=== PATIENT | male | born 1975 | race Caucasian/White ===

== ENCOUNTER → 2024-01-09 17:53 | Outpatient (BNVA) | payer OTHER, SELFPAY | PROVIDERS: Visit Provider Nurse Practitioner | DX: R05.9 Cough, unspecified (principal) | CPT/HCPCS: 87400 ==

== ENCOUNTER 2024-04-15 17:23 | Emergency (ER) | payer OTHER, SELFPAY ==
[2024-04-15 17:38] VITALS: BP 162/101; PULSE 115; RESP 18; TEMP 37.2; O2SAT 96; BMI 43.0
--- NOTE | 2024-04-15 18:02 | ED_ITS ---
Documented by User: RANDOLPH Thomas 04/15/24 20:23 HPI - Nausea/Vomiting/Diarrhea 2 General: Chief complaint: Nausea/Vomiting/Diarrhea Stated complaint: Nausea--ABD pain Time Seen by Provider: 04/15/24 17:46 Source: patient Mode of arrival: ambulatory Limitations: no limitations History of Present Illness: Patient is a 48-year-old male who presents to the emergency department complaining of nausea onset 1 day. Patient was started on valacyclovir yesterday after being diagnosed with shingles, and states his symptoms began soon after his first dose. He notes he has only had 3 doses of the valacyclovir so far, but along with his nausea he has had diarrhea and some abdominal cramping. He states he has not vomited, however. He has not run any fevers, no chills, chest pain, or breathing difficulties noted. The abdominal pain he reports is diffuse. He does note that he has drank hardly any water today and has not had an appetite, and states he feels dehydrated. No other symptoms to note at this time. MD elicited complaint: nausea, diarrhea and abdominal pain Onset (ago): day(s) Associated nausea: Yes Associated abdominal pain: Yes Location of pain: Diffuse Quality: cramping Context: other (Recent antiviral) Associated symtoms: Reports nausea; Denies chest pain, diaphoresis, dizziness, dysuria, headache(s) or palpitations Review of Systems 2 General: Reports: 10 or more systems reviewed and unremarkable except in HPI and below Const: Denies: fever(s), chills, change in appetite, change in weight or diaphoresis ENMT: Denies: throat pain or hoarseness Card: Denies: chest pain, palpitations or lightheadedness Resp: Denies: dyspnea, productive cough or wheezing GI: Reports: abdominal pain, nausea, diarrhea and GI cramping; Denies: vomiting : Denies: flank pain, difficulty urinating, dysuria, urinary frequency or urinary urgency Musc: Denies: neck pain or back pain Skin/Breast: Denies: rash or new lesions Neuro: Denies: headache(s) or dizziness Physical Exam 2 Const: COMMON NORMALS: no acute distress, patient oriented x3, no limitations, healthy appearing, alert and well nourished GENERAL APPEARANCE: cooperative and comfortable NUTRITIONAL APPEARANCE: obese ORIENTATION/CONSCIOUSNESS: Y es awake HENMT: COMMON NORMALS: normocephalic, atraumatic, hearing grossly normal bilaterally, external ears normal, Normal external nose present, Normal nasal mucous membranes and turbinates present and moist oral mucous membranes HEAD & SCALP: normocephalic and atraumatic NOSE: Normal external nose present and Normal nasal mucous membranes and turbinates present EXTERNAL EAR: Yes external ears normal Eye: COMMON NORMALS: Equal, round and reactive pupils present, EOMs intact bilaterally, conjunctivae normal and normal visual shultz by confrontation C ONJUNCTIVA: Yes conjunctivae normal PUPIL: Yes Equal, round and reactive pupils present Neck/C-Spine: COMMON NORMALS: full ROM, supple, no meningeal signs and no JVD Resp: COMMON NORMALS: normal respiratory effort, No retractions, No use of accessory muscles and clear to auscultation bilaterally AUSCULTATION: clear to auscultation bilaterally, no crackles, no rales, no rhonchi and no wheezes Cardio: COMMON NORMALS: no JVD, regular rate, regular rhythm, S1 normal heart sound present, S2 normal heart sound present, No gallops present (Cardio), No clicks present (Cardio), No murmurs present (Cardio), No rub (Cardio) and Peripheral pulses 2+ throughout RATE: regular rate RHYTHM: regular rhythm HEART SOUNDS: S1 normal heart sound present and S2 normal heart sound present PERIPHERAL PULSES: Peripheral pulses 2+ throughout GI: COMMON NORMALS: Normal to inspection, nondistended, normoactive bowel sounds present, Soft to palpation, non-tender, No hepatosplenomegaly present and no masses INSPECTION: Yes central obesity AUSCULTATION: Yes normoactive bowel sounds PALPATION: Yes Soft to palpation, No Guarding due to palpation present (GI), No Rigid due to palpation and Yes No hepatosplenomegaly present RECTAL EXAM: Yes deferred : COMMON NORMALS: Yes no CVA tenderness BLADDER/KIDNEY EXAM: Yes no CVA tenderness Back/Pelvis: COMMON NORMALS: no CVA tenderness Extremity: COMMON NORMALS: normal to inspection and full ROM Neuro: COMMON NORMALS: patient oriented x3, moves all extremities, no focal motor deficits and no sensory deficits noted SENSORIUM/ORIENTATION: Yes alert MENINGEAL SIGNS: Yes no meningeal signs Psych: COMMON NORMALS: mental status grossly normal, cooperative and speech normal SPEECH: Yes normal speech Skin: COMMON NORMALS: no rashes or lesions noted GENERAL SKIN EXAM: no rashes or lesions noted Course 2 Vital Signs: Vital signs: Vital Signs Temperature 98.9 F 04/15/24 17:38 Pulse Rate 96 04/15/24 20:29 Respiratory Rate 18 04/15/24 20:29 Blood Pressure 155/89 04/15/24 20:29 Pulse Oximetry 100 04/15/24 20:29 Oxygen Delivery Me thod Room Air 04/15/24 20:29 MDM - Nausea/Vomiting/Diarrhea Medical Decision Making Patient presents for 1 day of nausea after starting valacyclovir for shingles. His lab work was unremarkable and vitals have remained stable throughout his ED course. Will start him on some fluids and nausea medication, and upon recheck states he feels better. Due to the importance of the antiviral for shingles, will treat his symptoms of nausea with Zofran to take at home. However strict return precautions were given in the instance that he is unable to keep down food or drink or severe worsening of symptoms. Otherwise, he will follow-up with his primary care provider and continue to take his valacyclovir. Patient discharged home. Lab Data 04/15/24 18:10 04/15/24 18:10 Laboratory Results WBC 13.98 10^3/uL (3.29-11.43) H 04/15/24 18:10 RBC 5.32 10^6/uL (3.85-5.65) 04/15/24 18:10 Hgb 14.40 g/dL (11.27-16.99) 04/15/24 18:10 Hct 44.3 % (37-53) 04/15/24 18:10 MCV 83.3 fl (82-101) 04/15/24 18:10 MCH 27.1 pg (27-33) 04/15/24 18:10 MCHC 32.5 g/dL (30-55) 04/15/24 18:10 RDW 13.0 % (12.1-15.1) 04/15/24 18:10 Plt Count 394 10^3/cmm (157-399) 04/15/24 18:10 MPV 10.4 fL (7.4-10.4) 04/15/24 18:10 Neut % (Auto) 91.2 % 04/15/24 18:10 Lymph % (Auto) 4.0 % 04/15/24 18:10 Ritchie % (Auto) 3.1 % 04/15/24 18:10 Eos % (Auto) 1.0 % 04/15/24 18:10 Baso % (Auto) 0.3 % 04/15/24 18:10 Neut # (Auto) 12.74 10^3/uL (1.8-7.7) H 04/15/24 18:10 Lymph # (Auto) 0.6 10^3/uL (0.8-4.8) L 04/15/24 18:10 Ritchie # (Auto) 0.4 10^3/uL (0.2-0.9) 04/15/24 18:10 Eos # (Auto) 0.1 10^3/uL (0.0-0.8) 04/15/24 18:10 Baso # (Auto) 0.0 10^3/uL (0.0-0.1) 04/15/24 18:10 Nucleated RBC % (auto) 0 % 04/15/24 18:10 Nucleated RBCs # 0.0 /100WBC 04/15/24 18:10 Sodium 133 mmol/L (136-145) L 04/15/24 18:10 Potassium 4.1 mmol/L (3.5-5.1) 04/15/24 18:10 Chloride 98 mmol/L (98-107) 04/15/24 18:10 Carbon Dioxide 26 mmol/L (22-29) 04/15/24 18:10 Anion Gap 13.1 (5-19) 04/15/24 18:10 BUN 12 mg/dL (6-20) 04/15/24 18:10 Creatinine 0.7 mg/dL (0.7-1.2) 04/15/24 18:10 GFR Calculation 121.4 mL/min (90-130) 04/15/24 18:10 Glucose 159 mg/dL (65-115) H 04/15/24 18:10 Calculated Osmolality 279 mOsm/kg (285-295) L 04/15/24 18:10 Lactic Acid 1.5 mmol/L (0.5-2.2) 04/15/24 18:10 Calcium 8.0 mg/dL (8.5-10.5) L 04/15/24 18:10 Total Bilirubin 0.4 mg/dL (0.15-1.2) 04/15/24 18:10 AST 19 U/L (0-40) 04/15/24 18:10 ALT 17 U/L (0-41) 04/15/24 18:10 Alkaline Phosphatase 94 U/L (40-130) 04/15/24 18:10 C-Reactive Protein 8.9 mg/L (0.0-4.9) H 04/15/24 18:10 Total Protein 7.3 g/dL (6.6-8.7) 04/15/24 18:10 Albumin 3.9 g/dL (3.5-5.2) 04/15/24 18:10 Globulin 3.4 g/dL (1.3-4.6) 04/15/24 18:10 Lipase 20 U/L (13-60) 04/15/24 18:10 Urine Color Yellow (Yellow) 04/15/24 19:37 Urine Appearance Clear (CLEAR) 04/15/24 19:37 Urine pH 6.5 (5-7) 04/15/24 19:37 Ur Specific [place] 1.020 (1.005-1.030) 04/15/24 19:37 Urine Protein Trace (Negative) 04/15/24 19:37 Urine Glucose (UA) Norm (Normal) 04/15/24 19:37 Urine Ketones Negative (Negative) 04/15/24 19:37 Urine Blood 2+ (Negative) H 04/15/24 19:37 Urine Nitrate Positive (Negative) H 04/15/24 19:37 Urine Bilirubin Neg (Negative) 04/15/24 19:37 Urine Urobilinogen Norm mg/dL (Negative) 04/15/24 19:37 Ur Leukocyte Esterase Trace (Negative) H 04/15/24 19:37 Urine RBC 0-4 /hpf (0-2) H 04/15/24 19:37 Urine WBC Rare /hpf (0-5) 04/15/24 19:37 Ur Squamous Epith Cells None /hpf (0-5) 04/15/24 19:37 Amorphous Sediment Not Reportable 04/15/24 19:37 Urine Bacteria None /hpf (NONE) 04/15/24 19:37 Urine Mucus Trace /hpf 04/15/24 19:37 No radiology studies performed this visit Discharge Plan Discharge Patient Disposition: Home Clinical Impression: Gastroenteritis Condition: Stable Prescriptions: New ondansetron HCl 4 mg tablet 4 mg PO Q8H Qty: 30 0RF No Action cetirizine 10 mg tablet 10 mg PO DAILY Qty: 30 0RF fluticasone propionate [Flonase Allergy Relief] 50 mcg/actuation spray,suspension 2 spray intranasal DAILY Qty: 16 0RF Rx Instructions: administer into each nostril promethazine-DM 6.25-15 mg/5 mL syrup 5 ml PO Q4H PRN (Reason: cough) Qty: 118 0RF Rx Instructions: Do not exceed more than 30ml/24hour period (6 doses) Discharge Orders: Discharge ED (Routine); Ordered 04/15/24 Ordered By: Jose Reynoso Discharge Diet: As Directed Discharge Activity: Increase activity as tolerated Patient Instructions: Gastroenteritis (ED) Activity Restrictions/Additional Instructions: Continue taking your acyclovir. Add nausea medication for relief. Plenty of fluids as directed. Follow-up with primary care and return if your condition worsens or does not improve. Coding Level of Care Code ED Carriage Feeder for Chg Fwd Documented by User: Zeb Butler DO 04/21/24 15:42 HPI - Nausea/Vomiting/Diarrhea 2 General: Chief complaint: Nausea/Vomiting/Diarrhea Stated complaint: Nausea--ABD pain Time Seen by Provider: 04/15/24 17:46 Course 2 Vital Signs: Vital signs: Vital Signs Temperature 98.9 F 04/15/24 17:38 Pulse Rate 96 04/15/24 20:29 Respiratory Rate 18 04/15/24 20:29 Blood Pressure 155/89 04/15/24 20:29 Pulse Oximetry 100 04/15/24 20:29 Oxygen Delivery Me thod Room Air 04/15/24 20:29 MDM - Nausea/Vomiting/Diarrhea Medical Decision Making Patient presents for 1 day of nausea after starting valacyclovir for shingles. His lab work was unremarkable and vitals have remained stable throughout his ED course. Will start him on some fluids and nausea medication, and upon recheck states he feels better. Due to the importance of the antiviral for shingles, will treat his symptoms of nausea with Zofran to take at home. However strict return precautions were given in the instance that he is unable to keep down food or drink or severe worsening of symptoms. Otherwise, he will follow-up with his primary care provider and continue to take his valacyclovir. Patient discharged home. Chart reviewed Medical Records I reviewed the patient's medical records. Lab Data I reviewed the patient's lab results. 04/15/24 18:10 04/15/24 18:10 Laboratory Results WBC 13.98 10^3/uL (3.29-11.43) H 04/15/24 18:10 RBC 5.32 10^6/uL (3.85-5.65) 04/15/24 18:10 Hgb 14.40 g/dL (11.27-16.99) 04/15/24 18:10 Hct 44.3 % (37-53) 04/15/24 18:10 MCV 83.3 fl (82-101) 04/15/24 18:10 MCH 27.1 pg (27-33) 04/15/24 18:10 MCHC 32.5 g/dL (30-55) 04/15/24 18:10 RDW 13.0 % (12.1-15.1) 04/15/24 18:10 Plt Count 394 10^3/cmm (157-399) 04/15/24 18:10 MPV 10.4 fL (7.4-10.4) 04/15/24 18:10 Neut % (Auto) 91.2 % 04/15/24 18:10 Lymph % (Auto) 4.0 % 04/15/24 18:10 Ritchie % (Auto) 3.1 % 04/15/24 18:10 Eos % (Auto) 1.0 % 04/15/24 18:10 Baso % (Auto) 0.3 % 04/15/24 18:10 Neut # (Auto) 12.74 10^3/uL (1.8-7.7) H 04/15/24 18:10 Lymph # (Auto) 0.6 10^3/uL (0.8-4.8) L 04/15/24 18:10 Ritchie # (Auto) 0.4 10^3/uL (0.2-0.9) 04/15/24 18:10 Eos # (Auto) 0.1 10^3/uL (0.0-0.8) 04/15/24 18:10 Baso # (Auto) 0.0 10^3/uL (0.0-0.1) 04/15/24 18:10 Nucleated RBC % (auto) 0 % 04/15/24 18:10 Nucleated RBCs # 0.0 /100WBC 04/15/24 18:10 Sodium 133 mmol/L (136-145) L 04/15/24 18:10 Potassium 4.1 mmol/L (3.5-5.1) 04/15/24 18:10 Chloride 98 mmol/L (98-107) 04/15/24 18:10 Carbon Dioxide 26 mmol/L (22-29) 04/15/24 18:10 Anion Gap 13.1 (5-19) 04/15/24 18:10 BUN 12 mg/dL (6-20) 04/15/24 18:10 Creatinine 0.7 mg/dL (0.7-1.2) 04/15/24 18:10 GFR Calculation 121.4 mL/min (90-130) 04/15/24 18:10 Glucose 159 mg/dL (65-115) H 04/15/24 18:10 Calculated Osmolality 279 mOsm/kg (285-295) L 04/15/24 18:10 Lactic Acid 1.5 mmol/L (0.5-2.2) 04/15/24 18:10 Calcium 8.0 mg/dL (8.5-10.5) L 04/15/24 18:10 Total Bilirubin 0.4 mg/dL (0.15-1.2) 04/15/24 18:10 AST 19 U/L (0-40) 04/15/24 18:10 ALT 17 U/L (0-41) 04/15/24 18:10 Alkaline Phosphatase 94 U/L (40-130) 04/15/24 18:10 C-Reactive Protein 8.9 mg/L (0.0-4.9) H 04/15/24 18:10 Total Protein 7.3 g/dL (6.6-8.7) 04/15/24 18:10 Albumin 3.9 g/dL (3.5-5.2) 04/15/24 18:10 Globulin 3.4 g/dL (1.3-4.6) 04/15/24 18:10 Lipase 20 U/L (13-60) 04/15/24 18:10 Urine Color Yellow (Yellow) 04/15/24 19:37 Urine Appearance Clear (CLEAR) 04/15/24 19:37 Urine pH 6.5 (5-7) 04/15/24 19:37 Ur Specific [place] 1.020 (1.005-1.030) 04/15/24 19:37 Urine Protein Trace (Negative) 04/15/24 19:37 Urine Glucose (UA) Norm (Normal) 04/15/24 19:37 Urine Ketones Negative (Negative) 04/15/24 19:37 Urine Blood 2+ (Negative) H 04/15/24 19:37 Urine Nitrate Positive (Negative) H 04/15/24 19:37 Urine Bilirubin Neg (Negative) 04/15/24 19:37 Urine Urobilinogen Norm mg/dL (Negative) 04/15/24 19:37 Ur Leukocyte Esterase Trace (Negative) H 04/15/24 19:37 Urine RBC 0-4 /hpf (0-2) H 04/15/24 19:37 Urine WBC Rare /hpf (0-5) 04/15/24 19:37 Ur Squamous Epith Cells None /hpf (0-5) 04/15/24 19:37 Amorphous Sediment Not Reportable 04/15/24 19:37 Urine Bacteria None /hpf (NONE) 04/15/24 19:37 Urine Mucus Trace /hpf 04/15/24 19:37 Discharge Plan Discharge Patient Disposition: Home Clinical Impression: Gastroenteritis Condition: Stable Prescriptions: New ondansetron HCl 4 mg tablet 4 mg PO Q8H Qty: 30 0RF No Action cetirizine 10 mg tablet 10 mg PO DAILY Qty: 30 0RF fluticasone propionate [Flonase Allergy Relief] 50 mcg/actuation spray,suspension 2 spray intranasal DAILY Qty: 16 0RF Rx Instructions: administer into each nostril promethazine-DM 6.25-15 mg/5 mL syrup 5 ml PO Q4H PRN (Reason: cough) Qty: 118 0RF Rx Instructions: Do not exceed more than 30ml/24hour period (6 doses) Discharge Orders: Discharge ED (Routine); Ordered 04/15/24 Ordered By: Jose Reynoso Discharge Diet: As Directed Discharge Activity: Increase activity as tolerated Patient Instructions: Gastroenteritis (ED) Activity Restrictions/Additional Instructions: Continue taking your acyclovir. Add nausea medication for relief. Plenty of fluids as directed. Follow-up with primary care and return if your condition worsens or does not improve. Coding Level of Care Code ED Carriage Feeder for Onur Chris
[2024-04-15] MEDS: sodium chloride 0.9% 1,000 ML 999 ML IV (18:12)
[2024-04-15] MEDS: metoclopramide 5 mg/mL SDV 2 mL 10 MG IVP (18:13)
[2024-04-15 18:15] VITALS: BP 148/92; PULSE 106; RESP 18; O2SAT 96
[2024-04-15 18:28] LABS: Basophils % 0.3 %; Eosinophils # 0.1 10^3/uL (0.0-0.8); Hematocrit 44.3 % (37-53); Lymphocytes # 0.6 10^3/uL (0.8-4.8); Mean Corpuscular HGB Conc 32.5 g/dL (30-55); Mean Corpuscular Hemoglobin 27.1 pg (27-33); Mean Corpuscular Volume 83.3 fl (82-101); Mean Platelet Volume 10.4 fL (7.4-10.4); Monocytes # 0.4 10^3/uL (0.2-0.9); Monocytes % 3.1 %; Neutrophils # 12.74 10^3/uL (1.8-7.7); Neutrophils % 91.2 %; Nucleated Red Blood Cells % 0 %; Platelet Count 394 10^3/cmm (157-399); Red Blood Count 5.32 10^6/uL (3.85-5.65); White Blood Count 13.98 10^3/uL (3.29-11.43)
[2024-04-15 18:51] LABS: Alanine Aminotransferase 17 U/L (0-41); Albumin Level 3.9 g/dL (3.5-5.2); Alkaline Phosphatase 94 U/L (40-130); Anion Gap 13.1 (5-19); Aspartate Amino Transferase 19 U/L (0-40); Blood Urea Nitrogen 12 mg/dL (6-20); C Reactive Protein 8.9 mg/L (0.0-4.9); Carbon Dioxide 26 mmol/L (22-29); Chloride 98 mmol/L (98-107); Globulin 3.4 g/dL (1.3-4.6); Glomerular Filtration Rate 121.4 mL/min (90-130); Glucose 159 mg/dL (65-115); Lipase 20 U/L (13-60); Osmolality Calculated 279 mOsm/kg (285-295); Potassium 4.1 mmol/L (3.5-5.1); Sodium 133 mmol/L (136-145); Total Bilirubin 0.4 mg/dL (0.15-1.2); Total Protein 7.3 g/dL (6.6-8.7)
[2024-04-15 18:52] LABS: Lactic Sepsis W/Reflex 1.5 mmol/L (0.5-2.2)
[2024-04-15 20:09] LABS: Protein Urine Trace (Negative); Urine Appearance Clear (CLEAR); Urine Color Yellow (Yellow); pH Urine 6.5 (5-7)
[2024-04-15 20:10] LABS: Add Urine Microscopic? YES; Bilirubin Urine Neg (Negative); Blood Urine 2+ (Negative); Glucose Urine UA Norm (Normal); Ketones Urine Negative (Negative); Leukocyte Esterase Urine Trace (Negative); Nitrate Urine Positive (Negative); Urobilinogen Urine Norm (Negative)
[2024-04-15 20:12] LABS: Add Urine Culture? No; Mucus Urine TRACE /hpf; RBC Urine 0-4 /hpf (0-2); WBC Urine RARE /hpf (0-5)
[2024-04-15] MEDS: ondansetron 2 mg/ML SDV 2 mL 4 MG IVP (20:26)
[2024-04-15 20:29] VITALS: BP 155/89; PULSE 96; RESP 18; O2SAT 100
== END 2024-04-15 21:10 | disposition home or self-care (01) ==
PROVIDERS: Emergency Provider Physician Assistant
DX: K52.9 Noninfective gastroenteritis and colitis, unspecified (principal)
CPT/HCPCS: 80053; 81001; 83605; 83690; 85025; 86140; 96361; 96374; 96375; 99284; J2405; J2765; J7030